=== PATIENT | male | born 1950 | race Caucasian/White ===

== ENCOUNTER 2017-05-16 09:57 | Day surgery (SDC) | payer BC ==
[~2017-05-16] VITALS: Ht 177.8 cm; Wt 87.0 kg
[2017-05-16] VITALS (11 sets, daily range): BP systolic 111–136; BP diastolic 51–85
[2017-05-16] MEDS ORDERED: normal saline 1000ml 1,000 ML IV SCH (10:30)
[2017-05-16] MEDS ORDERED: LORazepam 0.5 MG tablet PO PRN (10:30)
[2017-05-16] MEDS ORDERED: diphenhydrAMINE 25mg capsule PO PRN (10:30)
[2017-05-16] MEDS ORDERED: LIDOcaine/PRILOcaine 5gm cream TP ONE (10:30)
[2017-05-16] MEDS ORDERED: LEVO50TA PO (11:54)
[2017-05-16] MEDS ORDERED: CARV-50 PO (11:54)
[2017-05-16] MEDS ORDERED: ASPI-1265 PO (11:54)
[2017-05-16] MEDS ORDERED: LISI-600 PO (11:54)
[2017-05-16] MEDS ORDERED: SIMV20TA5 PO (11:54)
[2017-05-16] MEDS ORDERED: METF500T PO (11:54)
[2017-05-16] MEDS ORDERED: GEMF600T3 PO (11:54)
[2017-05-16] MEDS ORDERED: INSU100I31 SQ (11:54)
[2017-05-16] MEDS ORDERED: INSU100C4 SQ (11:54)
[2017-05-16] MEDS ORDERED: iohexol 350MG/ML 100ml bottle IV ONE ×2 (12:00→13:22)
[2017-05-16] MEDS ORDERED: LIDOcaine 1%/PF (10mg/ml) 5ml vial ONE (12:00)
[2017-05-16] MEDS ORDERED: fentaNYL/PF 50MCG/1 ML 2ML syringe ONE (12:00)
[2017-05-16] MEDS ORDERED: midazolam 2 mg/2 ml injection ONE (12:00)
[2017-05-16] MEDS ORDERED: verapamil 2.5 mg/ml inj IV ONE (12:00)
[2017-05-16] MEDS ORDERED: heparin 1,000unit/ml 10ml vial 10 ML ONE ×2 (12:00→13:20)
[2017-05-16] MEDS ORDERED: nitroGLYCERIN-Tridil 50MG/D5W 250 ML IV ONE (12:01)
[2017-05-16] MEDS ORDERED: ticagrelor 90mg tablet ONE (13:34)
[2017-05-16] MEDS ORDERED: OXAZEpam 15mg capsule PO PRN (14:15)
[2017-05-16] MEDS ORDERED: ondansetron/PF 4mg/2ml inj IV PRN (14:15)
[2017-05-16] MEDS ORDERED: nitroGLYCERIN 0.4mg SUBLingual tab SL PRN (14:15)
[2017-05-16] MEDS ORDERED: proCHLORperazine 10 MG/2 ml inj IV PRN (14:15)
== END 2017-05-16 18:13 | disposition home or self-care (01) ==
LOC: SSTAY O 09:57
PROVIDERS: ATTEND Internal Medicine Interventional Cardiology
DX: I25.10 Atherosclerotic heart disease of native coronary artery without angina pectoris (principal); I10 Essential (primary) hypertension; I25.2 Old myocardial infarction; E11.9 Type 2 diabetes mellitus without complications; G89.29 Other chronic pain; E03.9 Hypothyroidism, unspecified; E78.5 Hyperlipidemia, unspecified; Z95.5 Presence of coronary angioplasty implant and graft; Z98.2 Presence of cerebrospinal fluid drainage device; Z79.4 Long term (current) use of insulin; Z86.74 Personal history of sudden cardiac arrest; Z87.891 Personal history of nicotine dependence; Z98.890 Other specified postprocedural states; Z72.89 Other problems related to lifestyle; Z85.828 Personal history of other malignant neoplasm of skin; Z79.899 Other long term (current) drug therapy
CPT/HCPCS: 82948; 93005; 93458; 99152; 99153; A6257; A6402; C1725; C1769; C1876; C9600; J1644; J2001; J2250; J3010; J3490; J7030; Q0163; Q9967; A4620; A6258